=== PATIENT | female | born 1945 | race African-American/Black ===

== ENCOUNTER 2021-10-10 18:41 | Emergency (ER) | payer MEDICARE, OTHER ==
[~2021-10-10] VITALS: Ht 160 cm; Wt 73.0 kg
[2021-10-10] MEDS ORDERED: KETOROLAC 60MG/2ML VIAL IM ONE (22:45)
[2021-10-10] MEDS ORDERED: NAPR500T7 MT (23:24)
[2021-10-10 23:35] VITALS: BP 141/71
== END 2021-10-10 23:36 | disposition home or self-care (01) ==
LOC: ER 18:41
DX: M54.42 Lumbago with sciatica, left side (principal); I10 Essential (primary) hypertension; E11.9 Type 2 diabetes mellitus without complications; Z88.1 Allergy status to other antibiotic agents; Z91.018 Allergy to other foods; Z98.890 Other specified postprocedural states; Z90.49 Acquired absence of other specified parts of digestive tract
CPT/HCPCS: 96372; 99283; J1885

== ENCOUNTER 2021-10-19 13:45 | Emergency (ER) | payer MEDICARE ==
[~2021-10-19] VITALS: Ht 165.1 cm; Wt 64.0 kg
[~2021-10-19 13:45] MED LIST: NAPR500T7 MT
[2021-10-19] MEDS ORDERED: ONDANSETRON HCL 4MG/2ML INJ IV STA (14:15)
[2021-10-19] MEDS ORDERED: SODIUM CHLORIDE 0.9% 1,000 ML IV SCH (14:30)
[2021-10-19 14:59] LABS: CLARITY URINE CLEAR (CLEAR); COLOR URINE YELLOW (YELLOW); KETONES URINE 1+ (NEGATIVE); LEUKOCYTE ESTERASE URINE NEGATIVE (NEGATIVE); NITRITE URINE NEGATIVE (NEGATIVE); OCCULT BLOOD URINE NEGATIVE (NEGATIVE); PROTEIN URINE 2+ (NEGATIVE); SPECIFIC GRAVITY URINE 1.023 (1.005-1.030); UROBILINOGEN URINE 0.2 E.U./dL (0.2-1.0)
[2021-10-19 15:32] LABS: BASOPHILS % 0.3 % (0.0-2.0); EOSINOPHILS % 0.1 % (0.0-5.0); HEMATOCRIT. 38.5 % (36.0-48.0); HEMOGLOBIN. 12.3 g/dL (12.0-16.0); LYMPHOCYTES % 13.7 % (20.0-50.0); MEAN CORPUSCULAR HEMOGLOBIN 25.8 pg (28.0-32.0); MEAN CORPUSCULAR VOLUME 80.4 fL (81.0-99.0); MEAN PLATELET VOLUME 9.3 fl (7.4-10.4); MONOCYTES % 3.1 % (2.0-8.0); NEUTROPHILS % 82.8 % (40.0-76.0); PLATELET 161 x1000/uL (130-400); RED BLOOD CELL COUNT 4.79 mill/uL (4.2-5.4); RED CELL DISTRIBUTION WIDTH 15.3 % (11.6-14.6)
[2021-10-19 15:42] LABS: CHLORIDE 102 mEq/L (98-107)
[2021-10-19] MEDS ORDERED: SODIUM POLYSTYRENE SULFONATE 15 G/60 ML BOT PO ONE (16:30)
[2021-10-19] MEDS ORDERED: INSULIN REGULAR (HUMULIN R) 300UNITS/3ML VIAL IV ONE (16:30)
[2021-10-19] MEDS ORDERED: DEXTROSE 50% WATER 50ML SYRINGE IV ONE (16:30)
[2021-10-19] MEDS ORDERED: CALCIUM CHLORIDE 1GM/10ML SYR IV ONE (16:30)
[2021-10-19] MEDS ORDERED: KETOROLAC 30MG/ML VIAL IV ONE (21:00)
[2021-10-19 21:30] VITALS: BP 150/90
== END 2021-10-19 21:17 | disposition short-term general hospital (02) ==
LOC: ER 13:45 → CANBEDREQ 22:32
DX: E87.5 Hyperkalemia (principal); I10 Essential (primary) hypertension; E11.9 Type 2 diabetes mellitus without complications; Z85.9 Personal history of malignant neoplasm, unspecified; Z20.822 Contact with and (suspected) exposure to COVID-19; Z90.49 Acquired absence of other specified parts of digestive tract; Z90.710 Acquired absence of both cervix and uterus; Z88.1 Allergy status to other antibiotic agents; Z91.018 Allergy to other foods
CPT/HCPCS: 36415; 74018; 80053; 81003; 82962; 83690; 84484; 85025; 87426; 93005; 96361; 96374; 96375; 99285; J1815; J1885; J2405; J3490

== ENCOUNTER 2021-10-25 03:56 | Inpatient (IN) | payer MEDICARE ==
[~2021-10-25] VITALS: Ht 162.6 cm; Wt 73.0 kg
[2021-10-25] MEDS ORDERED: ONDANSETRON HCL 4MG/2ML INJ IV STA ×2 (04:48→10:32)
[2021-10-25] MEDS ORDERED: SODIUM CHLORIDE 0.9% 1,000 ML IV ONE (05:00)
[2021-10-25 05:29] LABS: BASOPHILS % 0.7 % (0.0-2.0); EOSINOPHILS % 0.8 % (0.0-5.0); HEMATOCRIT. 36.1 % (36.0-48.0); HEMOGLOBIN. 12.3 g/dL (12.0-16.0); LYMPHOCYTES % 22.8 % (20.0-50.0); MEAN CORPUSCULAR HEMOGLOBIN 26.6 pg (28.0-32.0); MEAN CORPUSCULAR VOLUME 78.2 fL (81.0-99.0); MONOCYTES % 4.2 % (2.0-8.0); NEUTROPHILS % 71.5 % (40.0-76.0); PLATELET 146 x1000/uL (130-400); RED BLOOD CELL COUNT 4.61 mill/uL (4.2-5.4); RED CELL DISTRIBUTION WIDTH 15.1 % (11.6-14.6)
[2021-10-25] MEDS ORDERED: KETOROLAC 15MG/ML VIAL IV ONE (05:30)
[2021-10-25 05:33] LABS: CHLORIDE 104 mEq/L (98-107)
[2021-10-25] MEDS ORDERED: KETOROLAC 30MG/ML VIAL IV SCH (06:00)
[2021-10-25 06:35] LABS: CLARITY URINE CLEAR (CLEAR); COLOR URINE YELLOW (YELLOW); KETONES URINE 1+ (NEGATIVE); LEUKOCYTE ESTERASE URINE NEGATIVE (NEGATIVE); NITRITE URINE NEGATIVE (NEGATIVE); OCCULT BLOOD URINE NEGATIVE (NEGATIVE); PROTEIN URINE NEGATIVE (NEGATIVE); SPECIFIC GRAVITY URINE 1.016 (1.005-1.030); UROBILINOGEN URINE 0.2 E.U./dL (0.2-1.0)
[2021-10-25] MEDS ORDERED: MORPHINE SULFATE 4 MG/ML CPJ (NOT FOR IM USE) IV STA ×2 (07:01→10:32)
[2021-10-25] MEDS ORDERED: HYDRALAZINE 20MG/ML VIAL IV NR (11:45)
[2021-10-25] MEDS ORDERED: DEXTROSE 50% WATER 50ML SYRINGE IV PRN (11:45)
[2021-10-25] MEDS ORDERED: HYDRALAZINE 20MG/ML VIAL IV PRN (11:45)
[2021-10-25] MEDS ORDERED: NALOXONE HCL 0.4MG/ML VIAL IV PRN (12:00)
[2021-10-25] MEDS: BLOOD SUGAR DIAGNOSTIC STRIP TEST SCH ×3 (13:43→21:40)
[2021-10-25] MEDS: INSULIN LISPRO 100 UNITS/ML SUBCUT SCH ×3 (15:48→21:39)
[2021-10-25] MEDS: HYDROMORPHONE HCL/PF 2MG/ML CPJ IV PRN (18:57)
[2021-10-25 22:15] VITALS: BP 157/79
[2021-10-25] MEDS ORDERED: LOSA100T32 MT (22:59)
[2021-10-25] MEDS ORDERED: LINA1TAB5 MT (22:59)
[2021-10-26] VITALS: BP 183/89
[2021-10-26] MEDS ORDERED: HYDROCODONE/ACETAMINOPHEN 5/325MG TABLET PO PRN (01:15)
[2021-10-26] MEDS: ONDANSETRON HCL 4MG/2ML INJ IV PRN ×2 (01:38→09:56)
[2021-10-26] MEDS: HYDRALAZINE 10 MG in SODIUM CHLORIDE 0.9% 49.5 ML IV PRN ×2 (01:38→07:43)
[2021-10-26] MEDS: HYDROMORPHONE HCL/PF 2MG/ML CPJ IV PRN ×4 (01:39→20:53)
[2021-10-26] MEDS: DEXT 5%/0.45% NACL 1000ML 1,000 ML IV SCH ×2 (01:39→18:20)
[2021-10-26 04:00] VITALS: BP 153/64
[2021-10-26] MEDS: BLOOD SUGAR DIAGNOSTIC STRIP TEST SCH ×4 (06:35→21:30)
[2021-10-26 08:00] VITALS: BP 177/88
[2021-10-26] MEDS ORDERED: LACTULOSE 20G/30ML UDC PO SCH (09:00)
[2021-10-26] MEDS: INSULIN LISPRO 100 UNITS/ML SUBCUT SCH ×4 (09:58→21:34)
[2021-10-26 12:00] VITALS: BP 151/80
[2021-10-26] MEDS: AMLODIPINE 5MG TABLET PO SCH ×2 (12:21→21:29)
[2021-10-26] MEDS: DOCUSATE SODIUM 100MG CAPSULE PO SCH ×4 (13:15→18:25)
[2021-10-26] MEDS ORDERED: ENOXAPARIN 40MG/0.4ML SYR SUBCUT SCH (14:00)
[2021-10-26 15:54] LABS: BASOPHILS % 0.4 % (0.0-2.0); EOSINOPHILS % 0.1 % (0.0-5.0); HEMOGLOBIN. 11.9 g/dL (12.0-16.0); LYMPHOCYTES % 23.1 % (20.0-50.0); MEAN CORPUSCULAR HEMOGLOBIN 26.2 pg (28.0-32.0); MEAN PLATELET VOLUME 9.4 fl (7.4-10.4); MONOCYTES % 5.2 % (2.0-8.0); NEUTROPHILS % 71.2 % (40.0-76.0); PLATELET 194 x1000/uL (130-400); RED BLOOD CELL COUNT 4.56 mill/uL (4.2-5.4); RED CELL DISTRIBUTION WIDTH 15.6 % (11.6-14.6)
[2021-10-26 16:00] VITALS: BP 168/92
[2021-10-26 16:06] LABS: CHLORIDE 102 mEq/L (98-107)
[2021-10-26 16:21] LABS: LDL CHOLESTEROL 95 mg/dL (5-100)
[2021-10-26 16:23] LABS: HDL CHOLESTEROL 54 mg/dL (40-59)
[2021-10-26] MEDS ORDERED: METOCLOPRAMIDE HCL 10MG/2ML VIAL IV SCH (18:00)
[2021-10-26 20:00] VITALS: BP 150/76
[2021-10-26] MEDS ORDERED: FAMOTIDINE 20MG TABLET PO SCH (21:00)
== END 2021-10-26 22:37 | DRG 551 ==
LOC: ER 03:56 → SUPCPDRO 11:43 → 6EST 12:30 → EDBEDREQTM 12:34 → EDBEDREQ 12:34 → ENRESERV 20:35
PROVIDERS: ADMIT Internal Medicine; ATTEND Internal Medicine
DX: M48.061 Spinal stenosis, lumbar region without neurogenic claudication (principal); E11.10 Type 2 diabetes mellitus with ketoacidosis without coma; M47.816 Spondylosis without myelopathy or radiculopathy, lumbar region; I10 Essential (primary) hypertension; G89.29 Other chronic pain; K58.9 Irritable bowel syndrome, unspecified; R26.89 Other abnormalities of gait and mobility; Z20.822 Contact with and (suspected) exposure to COVID-19; R74.01 Elevation of levels of liver transaminase levels; R79.89 Other specified abnormal findings of blood chemistry; Z90.49 Acquired absence of other specified parts of digestive tract; Z90.710 Acquired absence of both cervix and uterus; Z88.8 Allergy status to other drugs, medicaments and biological substances; Z91.018 Allergy to other foods; Z79.899 Other long term (current) drug therapy; Z85.9 Personal history of malignant neoplasm, unspecified
CPT/HCPCS: 36415; 71045; 72131; 74018; 76700; 80053; 80061; 81003; 82962; 84443; 85025; 87426; 93005; 99285; J0360; J1170; J1650; J1815; J1885; J2270; J2405; J2765; J7030